=== PATIENT | male | born 1945 | race Caucasian/White ===

== ENCOUNTER → 2024-07-24 | Day surgery (SDC) | payer MEDICARE ==
[2024-07-19 12:37] LABS: BASOPHILS # (AUTO) 0.1 (0.0-0.1); BASOPHILS % 0.6 % (0.0-1.0); EOSINOPHILS # (AUTO) 0.2 (0.0-0.4); HEMATOCRIT 42.8 % (38.2-49.6); HEMOGLOBIN 14.8 g/dL (14.0-18.0); LYMPHOCYTES # (AUTO) 2.4 (1.0-3.2); LYMPHOCYTES % 27.2 % (18.0-39.1); MEAN CORPUSCULAR HEMOGLOBIN 32.5 pg (28-32); MEAN CORPUSCULAR HGB CONC 34.6 g/dL (31-35); MEAN CORPUSCULAR VOLUME 94.1 fL (81-99); MONOCYTES # (AUTO) 0.7 (0.2-0.8); MONOCYTES % 7.3 % (4.4-11.3); NEUTROPHILS # (AUTO) 5.6 (2.1-6.9); NEUTROPHILS % 62.7 % (38.7-80.0); PLATELET COUNT 155 x10e3/uL (140-360); RED BLOOD COUNT 4.55 x10e6/uL (4.3-5.7); RED CELL DISTRIBUTION WIDTH 12.9 % (11.7-14.4); WHITE BLOOD COUNT 8.96 x10e3/uL (4.8-10.8)
[~2024-07-24] MED LIST: AMLODIPINE BESYL5 MG PO; ASPIRIN325 MG PO; AVODART0.5 MG PO; CELEBREX100 MG PO; CLEAR LAX PO; COQ-10100 MG PO; CRESTOR10 MG PO; D3-5000125 MCG; DOCUSATE SODIU100 MG PO; FEXOFENADINE H180 MG PO; ISOSORBIDE DINI20 MG PO; ISOSORBIDE MONO20 MG PO; LACTATED RINGER'S 1,000 ML ONE; LIDOCAINE HCL 2% LOCAL INJ 5 ML SDV VIAL INJ ONE; METOPROLOL TART25 MG PO; METROPROLOL PO; NEURONTIN100 MG PO; NORCO 10-325 T1 EACH PO; OMEGA XL; OMEGA-3 KRILL1 EACH PO; PANTOPRAZOLE SO40 MG PO; PEPCID20 MG PO; PLAVIX75 MG PO; PROPOFOL IV EMULSION 50 ML IV ONE; ROBAXIN-750750 MG PO; VITAMIN C500 MG PO; ZESTRIL10 MG PO
[2024-07-24 08:50] VITALS: TEMP 97.3
[2024-07-24 09:35] VITALS: BP 120/79; PULSE 52; RESP 16; O2SAT 99
== END | disposition home or self-care (01) ==
LOC: OR 06:43
PROVIDERS: ATTEND Internal Medicine Gastroenterology
DX: Z12.11 Encounter for screening for malignant neoplasm of colon (principal); D12.0 Benign neoplasm of cecum; D12.3 Benign neoplasm of transverse colon; K63.3 Ulcer of intestine; K55.9 Vascular disorder of intestine, unspecified; K57.30 Diverticulosis of large intestine without perforation or abscess without bleeding; K64.8 Other hemorrhoids; K21.9 Gastro-esophageal reflux disease without esophagitis; I11.0 Hypertensive heart disease with heart failure; I50.9 Heart failure, unspecified; R00.1 Bradycardia, unspecified; I49.3 Ventricular premature depolarization; I25.10 Atherosclerotic heart disease of native coronary artery without angina pectoris; I25.2 Old myocardial infarction; Z95.5 Presence of coronary angioplasty implant and graft; Z95.1 Presence of aortocoronary bypass graft; G47.33 Obstructive sleep apnea (adult) (pediatric); M19.91 Primary osteoarthritis, unspecified site; M06.9 Rheumatoid arthritis, unspecified; Z01.812 Encounter for preprocedural laboratory examination; Z01.810 Encounter for preprocedural cardiovascular examination; Z79.899 Other long term (current) drug therapy; Z79.82 Long term (current) use of aspirin; Z79.01 Long term (current) use of anticoagulants; Z79.02 Long term (current) use of antithrombotics/antiplatelets
CPT/HCPCS: 36415; 45384; 85025; 88305; 93005; J2003; J2704; J7121; 45380